=== PATIENT | female | born 2000 | race African-American/Black ===

== ENCOUNTER 2023-12-27 13:19 | Emergency (ER) | payer BC ==
[~2023-12-27] VITALS: Ht 180.3 cm; Wt 75.0 kg
[2023-12-27 13:21] VITALS: PULSE 80; RESP 18; O2SAT 99
[2023-12-27 13:26] VITALS: BP 102/61; TEMP 98.4; O2SAT 98
== END 2023-12-27 13:45 | disposition left against medical advice (07) ==
LOC: ER 13:19
DX: Z20.2 Contact with and (suspected) exposure to infections with a predominantly sexual mode of transmission (principal)
CPT/HCPCS: 99281